=== PATIENT | male | born 2000 | race African-American/Black ===

== ENCOUNTER 2022-10-09 23:11 | Emergency (ER) | payer SELFPAY ==
--- OUTSIDE RECORDS SUMMARY | 2022-10-09 23:14 | XMS REPORT | Continuity of Care Document ---
:2000 Author Organization [facility] t Address [address] [place] [address] Care Team Providers Name Role Phone Radha Domingo Primary Care Physician RAY GUALLPA Attending Clinician Unavailable Ray Guallpa MD Attending Clinician Anam Walter Attending Clinician ANAM ARMANDO Attending Clinician Unavailable Problems Condition Condition Condition Status Onset Resolution Last Treating Co mments Source Name Details Category Date Date Treatment Clinician Date No known No known Disease Unive rs active active ity of problems problems [facility] Allergies, Adverse Reactions, Alerts Allergy Allergy Status Severity Reaction(s) Onset Inactive Treating Comm ents Source Name Type Date Date Clinician NO KNOWN Drug Active Univers ALLERGIE Class ity of S [facility] Social History Social Habit Start Date Stop Date Quantity Comments Source Exposure to 2022-04-17 2022-04-27 Not sure [facility] SARS-CoV-2 (event) 00:00:00 13:38:00 Medica l Branch Sex Assigned At [birth year] [facility] 00:00:00 00:00:00 [facility] [place] Smoking Status Start Date Stop Date Source Unknown if ever smoked [facility] Medications Ordered Filled Start Stop Current Ordering Indication Dosage Frequency Signature Comments Components Source Medication Medication Date Date Medication? Clinician (SIG) Name Name lidocaine 2021- No 10mL 10 mL, Unive rs 2% viscous 04-27 Oral, ity of (LIDOCAINE 21:30: 21:30 ONCE, 1 Dave as VISCOUS) 2 00 :00 dose, On Medic al % solution [facility] 10 mL 04/27/22 at 1630, PARUL No known No Univers medications 04-27 ity of 14:12: [place] 41 [facility] [place] chlorhexidi Yes [id number] 15mL Swish and Univers ne 0.12 % 04-27 spit out ity of mouthwash 00:00: 15 mL 2 [place] 00 (two) Medical times [place] daily. clindamycin 2021- No [id number] 300mg Take 1 Univers 300 mg 04-27 capsule by ity of capsule 00:00: 04:59 mouth 3 [place] 00 :00 (three) Medical times [place] daily for 7 days. Vital Signs Vital Name Observation Time Observation Value Comments Source Systolic blood 2022-04-27 22:21:39 124 mm[Hg] Univer [facility] of [facility] Diastolic blood 2022-04-27 22:21:39 70 mm[Hg] Unive rsity [facility] Heart rate 2022-04-27 22:21:39 85 /min [facility] Respiratory rate 2022-04-27 22:21:39 16 /min [facility] O[facility] saturation in 2022-04-27 22:21:39 98 /min [facility] Arterial blood by [facility] Pulse oximetry Branch Body height 2022-04-27 21:11:00 180.3 cm [facility] Body weight 2022-04-27 21:11:00 87.091 kg [facility] BMI 2022-04-27 21:11:00 26.78 kg/m2 [facility] Body temperature 2022-04-27 21:10:00 36.22 Jessica [facility] Systolic blood 2022-04-27 18:44:00 127 mm[Hg] Univer [facility] Diastolic blood 2022-04-27 18:44:00 75 mm[Hg] Unive rsity of [facility] Heart rate 2022-04-27 18:44:00 70 /min [facility] Body temperature 2022-04-27 18:44:00 36.28 Jessica [facility] Respiratory rate 2022-04-27 18:44:00 20 /min [facility] Body height 2022-04-27 18:44:00 180.3 cm [facility] Body weight 2022-04-27 18:44:00 87.601 kg [facility] BMI 2022-04-27 18:44:00 26.94 kg/m2 [facility] Oxygen saturation in 2022-04-27 18:44:00 100 /min [facility] Arterial blood by [facility] Pulse oximetry [place] Procedures Procedure Date / Time Performed Performing Clinician [facility] e ED LACERATION REPAIR 2022-04-27 21:55:00 Ray Guallpa [facility] CONSENT/REFUSAL FOR 2022-04-27 21:05:49 Doctor Unassigned, No Un [facility] DIAGNOSIS AND Name [facility] TREATMENT Encounters Start End Encounter Admission Attending Care Care Encounter Source Date/Time Date/Time Type Type Clinicians Facility Department ID 2022-04-27 2022-04-27 Emergency X SALONI [facility] ERT [id number] Univers 16:11:00 17:44:00 RAY spivey [facility] 2022-04-27 2022-04-27 Emergency Saloni [facility] [id number] Univers 16:11:00 17:44:00 Ray Ana [place] [id number] [id number] [facility] [id number] [address] ([facility]) 2022-04-27 2022-04-27 Urgent [place] MIEDDA [id number] Univers 14:00:00 14:20:00 Care Anam HEALTH [id number] it y of [place] [id number] Dave as HILDA?BLEA [id number] [address] MEDICAL OFFICE BUILDING 2022-04-27 2022-04-27 Outpatient R BISMARK [facility] [id number] Univers 14:00:00 14:00:00 ANAM spivey [facility] Results This patient has no known results.
[2022-10-09] MEDS ORDERED: BENZONATATE 100 MG CAP PO ONE (23:59)
[2022-10-10 00:48] LABS: SARS-COV-2 RT PCR NEGATIVE (NEGATIVE)
--- NOTE | 2022-10-10 01:19 | ER ---
Nurse's Notes [facility] Name: Ori Gomez Age: 21 yrs Sex: Male : 2000 Arrival Date: 10/09/2022 Time: 23:31 Bed IW3 Private MD: Diagnosis: Cough Presentation: 10/09 23:42 Chief complaint: Patient states: "I have had a cough for about 2 weeks and it is vc1 starting to get worse.". Coronavirus screen: Vaccine status: Patient reports being unvaccinated. Client denies travel out of the [place] in the last 14 days. cough unrelated to allergies, Client presents with at least one sign or symptom that may indicate coronavirus-19. Standard/surgical mask placed on the client. Provider contacted for isolation considerations. Ebola Screen: Patient denies travel to an Ebola-affected area in the 21 days before illness onset. No symptoms or risks identified at this time. Risk Assessment: Do you want to hurt yourself or someone else? Patient reports no desire to harm self or others. Onset of symptoms is unknown. 23:42 Method Of Arrival: Ambulatory vc1 23:42 Acuity: JHONY 4 vc1 10/10 00:00 Initial Sepsis Screen: Does the patient meet any 2 criteria? No. Patient's initial vc1 sepsis screen is negative. Does the patient have a suspected source of infection? No. Patient's initial sepsis screen is negative. Triage Assessment: 00:00 General: Appears in no apparent distress. uncomfortable, Behavior is calm, cooperative, vc1 appropriate for age. Pain: Denies pain. Historical: - Allergies: 10/09 23:43 No Known Allergies; vc1 - Home Meds: 23:43 None [Active]; vc1 - PMHx: 23:43 None; vc1 - PSHx: 23:43 None; vc1 - Immunization history:: Client reports having NOT received the Covid vaccine. - Social history:: Smoking status: Patient reports the use of cigarette tobacco products, denies chronic smoking, but will smoke occasionally. Screenin:44 Abuse screen: Denies threats or abuse. Nutritional screening: No deficits noted. vc1 Tuberculosis screening: No symptoms or risk factors identified. Fall Risk No fall in past 12 months (0 pts). Vital Signs: 23:42 Weight 81.65 kg; Height 6 ft. (182.88 cm); Pain 0/10; vc1 23:45 BP 116 / 97; Pulse 89; Resp 14; Temp 98.7(O); Pulse Ox 96% ; vc1 23:42 Body Mass Index 24.41 (81.65 kg, 182.88 cm) vc1 ED Course: 23:31 Patient arrived in ED. jj6 23:37 Car Gao PA is PHCP. cp 23:37 Michael Coronel MD is Attending Physician. cp 23:43 Triage completed. vc1 23:44 Arm band placed on right wrist. vc1 23:51 Strep Sent. vc1 23:51 COVID-19/FLU A+B/RSV Sent. vc1 10/10 00:00 Patient has correct armband on for positive identification. vc1 01:33 No provider procedures requiring assistance completed. Patient did not have IV access vc1 during this emergency room visit. Administered Medications: 00:07 Drug: Tessalon Perle (benzonatate) 200 mg Route: PO; vc1 Medication: 10/09 23:44 VIS not applicable for this client. vc1 Outcome: 10/10 01:19 Discharge ordered by . cp 01:34 Discharged to home ambulatory. vc1 01:34 Condition: good 01:34 Discharge instructions given to patient, Instructed on discharge instructions, follow up and referral plans. medication usage, Demonstrated understanding of instructions, follow-up care, medications, Prescriptions given X 2. 01:34 Patient left the ED. vc1 Signatures: Car Gao PA PA cp Jeffries, Jennifer jj6 Twyla Muniz RN RN vc1
--- NOTE | 2022-10-10 01:19 | EDPHYS ---
Physician Documentation [facility] Name: Ori Gomez Age: 21 yrs Sex: Male : 2000 Arrival Date: 10/09/2022 Time: 23:31 Bed IW3 Private MD: ED Physician Michael Coronel HPI: 10/09 23:50 This 21 yrs old Black Male presents to ER via Ambulatory with complaints of Cough, cp Chest Congestion. 23:50 The patient or guardian reports cough, that is intermittent. Onset: The cp symptoms/episode began/occurred 2 week(s) ago, and became worse 2 day(s) ago. 23:50 Associated signs and symptoms: Pertinent positives: chest congestion, Pertinent cp negatives: diarrhea, fever, vomiting. Historical: - Allergies: 23:43 No Known Allergies; vc1 - Home Meds: 23:43 None [Active]; vc1 - PMHx: 23:43 None; vc1 - PSHx: 23:43 None; vc1 - Immunization history:: Client reports having NOT received the Covid vaccine. - Social history:: Smoking status: Patient reports the use of cigarette tobacco products, denies chronic smoking, but will smoke occasionally. ROS: 23:55 Constitutional: Negative for chills, fever, poor PO intake. cp 23:55 Eyes: Negative for injury, pain, redness, and discharge. cp 23:55 ENT: Negative for drainage from ear(s), ear pain, difficulty swallowing, difficulty handling secretions. 23:55 Cardiovascular: Negative for chest pain, palpitations. 23:55 Respiratory: Positive for cough, "sounds productive", Negative for shortness of breath, wheezing. 23:55 Abdomen/GI: Negative for abdominal pain, vomiting, diarrhea, constipation. 23:55 Neuro: Negative for altered mental status, dizziness, headache, weakness. 23:55 All other systems are negative. Exam: 23:58 Constitutional: The patient appears in no acute distress, alert, awake, comfortable, cp non-toxic, well developed, well nourished. 23:58 Head/Face: Normocephalic, atraumatic. cp 23:58 Eyes: Periorbital structures: appear normal, Conjunctiva: normal, no exudate, no injection, Lids and lashes: appear normal, bilaterally. 23:58 ENT: External ear(s): are unremarkable, Ear canal(s): are normal, clear, TM's: dullness, bilaterally, Nose: is normal, Mouth: Lips: moist, Oral mucosa: moist, Posterior pharynx: Airway: no evidence of obstruction, patent, Tonsils: with erythema, no enlargement, no exudate, Uvula: midline, swelling, is not appreciated, erythema, that is mild, exudate, is not appreciated. 23:58 Neck: ROM/movement: is normal, is supple, without pain, no range of motions limitations, no meningismus, Lymph nodes: no appreciated lymphadenopathy. 23:58 Chest/axilla: Inspection: normal. 23:58 Cardiovascular: Rate: normal, Rhythm: regular. 23:58 Respiratory: the patient does not display signs of respiratory distress, Respirations: cp normal, no use of accessory muscles, no retractions, labored breathing, is not present, Breath sounds: decreased breath sounds, are not appreciated, stridor, is not appreciated, + upper airway congestion. wheezing: is not appreciated. 23:58 Abdomen/GI: Exam negative for discomfort, distension, guarding, Inspection: abdomen appears normal. 23:58 Back: pain, is absent, ROM is normal. 23:58 Skin: no rash present. Vital Signs: 23:42 Weight 81.65 kg; Height 6 ft. (182.88 cm); Pain 0/10; vc1 23:45 BP 116 / 97; Pulse 89; Resp 14; Temp 98.7(O); Pulse Ox 96% ; vc1 23:42 Body Mass Index 24.41 (81.65 kg, 182.88 cm) vc1 MDM: 23:51 Patient medically screened. cp 12 00:00 Differential Diagnosis: Bronchitis Influenza Sinusitis Otitis Media Pneumonia. cp 01:18 Data reviewed: vital signs, nurses notes, lab test result(s). cp 01:18 Counseling: I had a detailed discussion with the patient and/or guardian regarding: the cp historical points, exam findings, and any diagnostic results supporting the discharge/admit diagnosis, lab results, to return to the emergency department if symptoms worsen or persist or if there are any questions or concerns that arise at home. ED course: VSS. Patient appears non-toxic and no signs of respiratory distress. Will treat with Z-haja since cough for 2 weeks and discharge to home for continued monitoring. 10/09 23:45 Order name: COVID-19/FLU A+B/RSV; Complete Time: 01:15 vc1 10/09 23:45 Order name: Strep; Complete Time: 01:15 vc1 10/10 00:30 Order name: Throat Culture EDMS Administered Medications: 00:07 Drug: Tessalon Perle (benzonatate) 200 mg Route: PO; vc1 Disposition: 10/11 00:33 Co-signature as Attending Physician, Michael Coronel MD. rn Disposition Summary: 10/10/22 01:19 Discharge Ordered Location: Home cp Problem: new cp Symptoms: have improved cp Condition: Stable cp Diagnosis - Cough cp Followup: cp - With: Private Physician - When: 2 - 3 days - Reason: Worsening of condition Discharge Instructions: - Discharge Summary Sheet cp - Cough, Adult cp Forms: - Medication Reconciliation Form cp - Thank You Letter cp - Antibiotic Education cp - Prescription Opioid Use cp Prescriptions: - Tessalon Perles 100 mg Oral Capsule - take 2 capsule by ORAL route every 8 hours As needed; 20 capsule; Refills: 0, cp Product Selection Permitted - Zithromax Z-Haja 250 mg Oral Tablet - take 1 tablet by ORAL route as directed for 5 days Day 1 - take two (2) tablets cp one time. Day 2, 3, 4 , 5 take one (1) tablet once daily.; 6 tablet; Refills: 0, Product Selection Permitted Signatures: Dispatcher [employer] EDMichael Martinez MD MD rn Page, Corey, PA PA cp Twyla Muniz RN RN vc1
[2022-10-10 01:40] VITALS: BP 116/97; TEMP 98.7; O2SAT 96
== END 2022-10-10 01:34 | disposition home or self-care (01) ==
LOC: ER 23:11
DX: R05.9 Cough, unspecified (principal); F17.210 Nicotine dependence, cigarettes, uncomplicated; Z20.822 Contact with and (suspected) exposure to COVID-19
CPT/HCPCS: 0241U; 87070; 87081; 99283